=== PATIENT | male | born 1995 | race Caucasian/White ===

== ENCOUNTER 2016-12-11 12:54 | Emergency (ER) | payer OTHER ==
[2016-12-11 13:06] VITALS: TEMP 98.9; BMI 27.9
--- NOTE | 2016-12-11 14:20 | PDOC ---
History of Present Illness - General Chief Complaint: Revisit, Lab Variance Stated Complaint: KIDNEY PAIN Time Seen by Provider: 12/11/16 13:25 History Source: Patient Exam Limitations: No Limitations - History of Present Illness Initial Comments: 12/11/16 14:14 21-year-old male sent over from urgent care clinic secondary to elevated creatinine noted on blood work this morning and complaints of right kidney pain for the past year. Patient denies diabetes, kidney disease prior, change in urine pattern, change in weight, change in appetite, or change in activity. Patient does state was told he had anemia and [place] and hepatitis but took medication for hepatitis. Timing/Duration: unsure Associated Symptoms: reports: denies symptoms Past History - Past Medical History Allergies/Adverse Reactions: Allergies Allergy/AdvReac Type Severity Reaction Status Date / Time No Known Allergies Allergy Verified 12/11/16 12:57 Home Medications: Ambulatory Orders NK [No Known Home Medication] 12/11/16 Anemia: Yes Liver Disease: Yes (? hepatitis) Other medical history: ? kidney disease - Surgical History Appendectomy: Yes - Psycho/Social/Smoking Cessation Hx Anxiety: No Suicidal Ideation: No Smoking History: Never smoked Have you smoked in the past 12 months: No Information on smoking cessation initiated: No Hx Alcohol Use: No Drug/Substance Use Hx: No Patient Lives Alone: No Review of Systems - Review of Systems Able to Perform ROS?: Yes Constitutional: No: Symptoms Reported Respiratory: No: Symptoms reported Cardiac (ROS): No: Symptoms Reported ABD/GI: No: Symptoms Reported : Yes: Flank Pain (right) Musculoskeletal: No: Symptoms Reported Integumentary: No: Symptoms Reported Neurological: No: Symptoms reported Endocrine: No: Symptoms Reported *Physical Exam - Vital Signs Last Vital Signs Temp Pulse Resp BP Pulse Ox 98.9 F 84 18 128/74 100 12/11/16 12:59 12/11/16 12:59 12/11/16 12:59 12/11/16 12:59 12/11/16 12:59 - Physical Exam General Appearance: Yes: Nourished, Appropriately Dressed. No: Apparent Distress HEENT: positive: EOMI, LULA. negative: Pale Conjunctivae Neck: positive: Supple Respiratory/Chest: positive: Lungs Clear, Normal Breath Sounds. negative: Respiratory Distress, Accessory Muscle Use Cardiovascular: positive: Regular Rhythm, Regular Rate. negative: Murmur Gastrointestinal/Abdominal: positive: Soft. negative: Tenderness Musculoskeletal: positive: CVA Tenderness (R) (mild) Extremity: negative: Normal Capillary Refill Integumentary: positive: Normal Color, Warm, Moist Neurologic: positive: Motor Strength 5/5 (ambulatory) ED Treatment Course - LABORATORY CBC & Chemistry Diagram: 12/11/16 14:30 12/11/16 14:30 - RADIOLOGY Radiology Studies Ordered: Category Date Time Status KIDNEY / RENAL US [US] Stat Ultrasound 12/11/16 14:14 Ordered Medical Decision Making - Medical Decision Making 12/11/16 14:19 Patient sent here from urgent care clinic for evaluation of stage IV kidney disease recently noted on blood work that was collected last week at an urgent care clinic and when he went for follow-up today was told to go to the ER. Patient is complains of right flank/ right CVA pain for the past year but denies any change in urine pattern. Patient ordered for labs, urine, and kidney ultrasound. 12/11/16 16:10 Laboratory Tests 12/11/16 12/11/16 12/11/16 14:30 14:30 14:30 WBC 7.6 Hgb 14.3 Hct 43.3 Plt Count 208 Neutrophils % 55.2 Sodium 141 Potassium 4.7 Chloride 103 Carbon Dioxide 29 Anion Gap 9 BUN 13 Creatinine 0.8 Random Glucose 95 Calcium 9.4 Total Bilirubin 0.4 AST 12 L ALT 32 Total Protein 7.6 Albumin 4.4 Urine Ketones Negative Urine Nitrite Negative Ur Leukocyte Esterase Negative Ultrasound negative for acute findings. Patient can follow-up with his PCP. *DC/Admit/Observation/Transfer Diagnosis at time of Disposition: Flank pain - Discharge Dispostion Disposition: HOME Condition at time of disposition: Good - Referrals Referrals: Kd Clarke [Primary Care Provider] - - Patient Instructions Printed Discharge Instructions: DI for Flank Pain Additional Instructions: Your labs and urine and ultrasound negative for acute findings. Please follow- up with your PCP as needed.
[2016-12-11 14:42] LABS: BASOPHIL 1.4 % (0-2.0); EOSINOPHIL 7.5 % (0-4.5); MCH 30.1 pg (25.7-33.7); MEAN PLT VOLUME 9.2 fl (7.5-11.1); NEUTROPHILS 55.2 % (42.8-82.8); PLATELET COUNT 208 K/MM3 (134-434); RDW 13.5 % (11.9-15.9); WHITE BLOOD COUNT 7.6 K/mm3 (4.0-10.0)
[2016-12-11 14:47] LABS: URINE APPEARANCE CLEAR; URINE BILIRUBIN NEGATIVE (NEGATIVE); URINE BLOOD NEGATIVE (NEGATIVE); URINE COLOR STRAW; URINE GLUCOSE (UA) NEGATIVE (NEGATIVE); URINE KETONE NEGATIVE (NEGATIVE); URINE LEUK ESTERASE NEGATIVE (NEGATIVE); URINE NITRITE NEGATIVE (NEGATIVE); URINE PROTEIN NEGATIVE (NEGATIVE); URINE UROBILINOGEN NEGATIVE E.U./dl (0.2-1.0)
[2016-12-11 15:06] LABS: ALBUMIN 4.4 g/dl (3.4-5.0); ALK PHOS 80 U/L (45-117); ANION GAP 9 (8-16); BILIRUBIN,TOTAL 0.4 mg/dL (0.2-1.0); CALCIUM 9.4 mg/dL (8.5-10.1); CO2 29 mmol/L (21-32); CREATININE 0.8 mg/dL (0.7-1.3); GLUCOSE,RANDOM 95 mg/dL (74-106); SGOT/AST 12 U/L (15-37); SGPT/ALT 32 U/L (12-78); TOT PROT 7.6 g/dl (6.4-8.2)
[2016-12-11 16:40] VITALS: BP 122/65; PULSE 78
== END 2016-12-11 16:40 | disposition home or self-care (01) ==
LOC: JER 12:54
DX: R10.31 Right lower quadrant pain (principal); N28.89 Other specified disorders of kidney and ureter; K76.89 Other specified diseases of liver
CPT/HCPCS: 36415; 76775-TC; 80053; 81003; 85025; 99285-25

== ENCOUNTER 2020-07-26 12:46 | Emergency (ER) | payer SELFPAY ==
[2020-07-26 12:51] VITALS: BP 133/91; PULSE 110; TEMP 97; BMI 30.4
[2020-07-26] MEDS ORDERED: IBUPROFEN 600 MG TABLET (FP) PO ONE ×2 (13:26→13:28)
== END 2020-07-26 14:13 | disposition home or self-care (01) ==
LOC: JER 12:46 → JERFT 12:46
DX: M25.512 Pain in left shoulder (principal)
CPT/HCPCS: 71046-TC-FY; 73030-TC-LT-FY; 99285-25